=== PATIENT | female | born 1950 | race American Indian/Alaskan Native ===

== ENCOUNTER 2018-08-30 15:13 | Emergency (ER) | payer MEDICARE ==
[2018-08-30 15:44] VITALS: BMI 33.0
[2018-08-30] MEDS ORDERED: Sodium Chloride 0.9% 1,000 ML IV ONE (16:43)
[2018-08-30 16:54] LABS: BASO % 0.6 % (0.0-2.0); EOS # 0.5 K/uL (0.0-0.7); EOS % 9.3 % (0.0-4.0); HEMOGLOBIN 11.8 g/dL (11.0-16.0); LYMPH # 2.1 K/uL (1.0-4.3); MEAN CELL VOLUME 77.1 fL (81.0-99.0); MEAN CORPUSCULAR HEMOGLOBIN 25.3 pg (27.0-31.0); MEAN CORPUSCULAR HGB CONC 32.8 g/dL (33.0-37.0); MEAN PLATELET VOLUME 7.7 fL (7.2-11.7); MONO # 0.5 K/uL (0.0-0.8); MONO % 9.7 % (0.0-10.0); NEUT # 2.3 K/uL (1.8-7.0); NEUT % 41.4 % (50.0-75.0); NRBC % 0.2 % (0.0-2.0); RBC 4.67 Mil/uL (3.80-5.20); RED CELL DISTRIBUTION WIDTH 15.7 % (11.5-14.5); WHITE BLOOD COUNT 5.5 K/uL (4.8-10.8)
[2018-08-30 16:56] LABS: SQUAMOUS EPITHIAL 1 /hpf (0-5); URINE BACTERIA FEW (<OCC); URINE BILIRUBIN NEGATIVE (NEGATIVE); URINE BLOOD 2+ (NEGATIVE); URINE CLARITY Hazy (Clear); URINE COLOR Yellow (YELLOW); URINE GLUCOSE (UA) NORMAL (Normal); URINE LEUKOCYTE ESTERASE 3+ Leu/uL (Negative); URINE PROTEIN NEGATIVE (NEGATIVE); URINE UROBILINOGEN NORMAL mg/dL (0.2-1.0); WBC CLUMPS FEW /hpf
--- NOTE | 2018-08-30 16:57 | C.PDOC ---
History Of Present Illness 67 y/o female with a PMHx of HTN presents to the ED complaining of 3 weeks of intermittent low back pain radiating down the left leg. Since yesterday, patient has noticed some blood in the urine and when wiping. Otherwise she denies any nausea, vomiting, abdominal pain, fevers, chills, numbness, or weakness. Time Seen by Provider: 08/30/18 15:50 Chief Complaint (Nursing): Female Genitourinary History Per: Patient History/Exam Limitations: no limitations Onset/Duration Of Symptoms: Days Current Symptoms Are (Timing): Still Present Associated Symptoms: None Past Medical History Reviewed: Historical Data, Nursing Documentation, Vital Signs Vital Signs: Last Vital Signs Temp 97.7 F 08/30/18 15:47 Pulse 54 L 08/30/18 15:47 Resp 17 08/30/18 15:47 BP 155/95 H 08/30/18 15:47 Pulse Ox 99 08/30/18 15:47 - Medical History PMH: Fractures (LEFT RING FINGER), HTN, Hypercholesterolemia Denies: Chronic Kidney Disease - [facility] Procedures INCIS W REM OF FORIEGN BODY OR DEV FROM SKIN & SUBCUT TISSUE (10/17/14) OTHER LOCAL DESTRUC SKIN (10/17/14) Family History: States: No Known Family Hx - Social History Hx Alcohol Use: No Hx Substance Use: No - Immunization History Hx Tetanus Toxoid Vaccination: No Hx Influenza Vaccination: Yes Hx Pneumococcal Vaccination: Yes Review Of Systems Except As Marked, All Systems Reviewed And Found Negative. Constitutional: Negative for: Fever, Chills Cardiovascular: Negative for: Chest Pain Respiratory: Negative for: Shortness of Breath Gastrointestinal: Negative for: Nausea, Vomiting, Abdominal Pain, Diarrhea Genitourinary: Positive for: Hematuria. Negative for: Dysuria, Frequency, Incontinence Musculoskeletal: Positive for: Back Pain, Leg Pain Skin: Negative for: Rash Neurological: Negative for: Weakness, Numbness, Incoordination Physical Exam - Physical Exam Appears: Well, Non-toxic, No Acute Distress Skin: Normal Color, Warm, No Rash Head: Normacephalic Eye(s): bilateral: PERRL Oral Mucosa: Moist Neck: Trachea Midline, Supple Chest: Symmetrical Cardiovascular: Rhythm Regular, No Murmur Respiratory: Normal Breath Sounds, No Accessory Muscle Use, No Rhonchi, No Wheezing Gastrointestinal/Abdominal: Soft, Tenderness (Mild suprapubic tenderness), No Guarding, No Rebound Back: No CVA Tenderness, No Vertebral Tenderness, Paraspinal Tenderness (diffuse lumbar tenderness) Extremity: Normal ROM (x 4), No Pedal Edema, No Deformity Pulses: Left Dorsalis Pedis: Normal, Right Dorsalis Pedis: Normal Neurological/Psych: Oriented x3, Normal Cranial Nerves, Normal Motor, Normal Sensation Gait: Steady ED Course And Treatment - Laboratory Results Result Diagrams: 08/30/18 16:50 08/30/18 16:50 Lab Interpretation: No Acute Changes O2 Sat by Pulse Oximetry: 99 (RA) Pulse Ox Interpretation: Normal - CT Scan/US CT abd/pelvis Other Rad Studies (CT/US): Read By Radiologist, Radiology Report Reviewed CT/US Interpretation: Accession No. : [id number]. Patient Name / ID : Marco Tompkins / [id number]. Exam Date : 08/30/2018 17:57:11 ( Approved ). Study Comment : Sex / Age : F / 67Y. Creator : Jimmy Nunes Dictator : Kelsie Luna MD. Security Flex Utility Officer : Head Athletic Trainer : Kelsie Luna MD. Approver2 : Report Date : 08/30/2018 18:12:48. My Comment : . PROCEDURE: CT Abdomen and Pelvis without Oral or IV contrast. HISTORY: renal pain. COMPARISON: Abdominal ultrasound performed 04/08/18. TECHNIQUE: Contiguous axial images of the abdomen and pelvis. No oral or IV contrast administered. Coronal and Sagittal reformats generated and reviewed. Radiation dose: Total exam DLP = 949.98 mGy-cm. This CT exam was performed using one or more of the following dose reduction techniques: Automated exposure control, adjustment of the mA and/or kV according to patient size, and/or use of iterative reconstruction technique. FINDINGS: There is limited evaluation of the solid organs without the administration of IV contrast. LOWER THORAX: No visible consolidation, pleural effusion, or pneumothorax. LIVER: Unremarkable unenhanced appearance. GALLBLADDER AND BILE DUCTS: Unremarkable unenhanced appearance. PANCREAS: Unremarkable unenhanced appearance. SPLEEN: Unremarkable unenhanced appearance. ADRENALS: Unremarkable unenhanced appearance. KIDNEYS AND URETERS: No hydronephrosis or obstructing renal calculus. Bilateral renal cysts largest at the right lower pole measuring approximately 5.4 cm. BLADDER: Mildly thick-walled under distended urinary bladder. REPRODUCTIVE: Uterus is present. APPENDIX: The appendix appears within normal limits of caliber. No secondary signs of acute appendicitis. BOWEL: The stomach is nondistended. Lack of oral contrast limits evaluation for bowel pathology. The bowel loops appear within normal limits of caliber without evidence of intestinal obstruction. Moderate to severe diffuse constipation. PERITONEUM: No significant free fluid. No definite free air. LYMPH NODES: No bulky lymphadenopathy identified. VASCULATURE: Atherosclerotic calcifications. No aortic aneurysm. BONES: 10 mm anterolisthesis of L4 on L5. Degenerative changes of the spine. OTHER FINDINGS: None. IMPRESSION: Bilateral renal cysts, largest at the right lower pole measuring approximately 5.4 cm. Mildly thick-walled under distended urinary bladder; recommend correlation with urinalysis. Moderate to severe diffuse constipation. 10 mm anterolisthesis of L4 on L5. Progress Note: Labs ordered and reviewed. Patient given 1L IV fluids and 30 mg IV Toradol. Pt remained stable during the Ed evaluation. On re-eval, resting comfortably, not in any apparent distress. Abd: benign, (-) guarding, (-) rebound, (-) localized tenderness. Back: (-) CVA tenderness. Blood work review and appears without acute findings, no acute leukocytosis or left shift, CMP- normal. UA c/w UTI. Pt received Cefepime, Ucx- pending. CT A/P review : Bilateral renal cysts, largest at the right lower pole measuring approximately 5.4 cm. Mildly thick-walled under distended urinary bladder; recommend correlation with urinalysis. results review and discussed with patient. Pt has clinical findings c/w UTI. Pt advised and ref. to F/u with PMD, Uroloigy in 2-3 days for re-evaluation. return to ED if any worsening or new chnages. Disposition Counseled Patient/Family Regarding: Studies Performed, Diagnosis, Need For Followup, Rx Given - Disposition Referrals: Saritha De La Garza MD [Medical Doctor] - Te Keane MD [Staff Provider] - Disposition: HOME/ ROUTINE Disposition Time: 18:38 Condition: STABLE Additional Instructions: Encourage fluids Take medication as prescribed Cranberry supplement daily Follow up with PMD, Urology in 2-3 days for re-evaluation. return to ED if any worsening or new changes. Prescriptions: Cefdinir [Omnicef] 300 mg PO BID #14 cap Cranberry 500 mg PO BID #30 capsule Instructions: Urinary Tract Infections in Adults Forms: [employer] (French) - Clinical Impression Clinical Impression: UTI (urinary tract infection) - PA / BARREL LATHE OPERATOR INSIDE / Resident Statement MD/DO has reviewed & agrees with the documentation as recorded. - Scribe Statement The provider has reviewed the documentation as recorded by the Scribe Amanda Cali All medical record entries made by the Scribe were at my direction and persona lly dictated by me. I have reviewed the chart and agree that the record accurately reflects my personal performance of the history, physical exam, medical decision making, and the department course for this patient. I have also personally directed, reviewed, and agree with the discharge instructions and disposition.
[2018-08-30 17:05] LABS: ALB/GLOB RATIO 1.2 (1.0-2.1); ALBUMIN 4.5 g/dL (3.5-5.0); CALCIUM 10.2 mg/dl (8.6-10.4)
[2018-08-30] MEDS ORDERED: Cefepime IV 2 gm in Dextrose 2 GM/100 ML BAG IVPB STA (17:26)
[2018-08-30 17:53] VITALS: BP 159/86; PULSE 52; RESP 18; TEMP 97.5
[2018-08-30 18:15] VITALS: O2SAT 99
--- NOTE | 2018-08-30 18:33 | CT ---
PROCEDURE: CT Abdomen and Pelvis without Oral or IV contrast. HISTORY: renal pain COMPARISON: Abdominal ultrasound performed 04/08/18 TECHNIQUE: Contiguous axial images of the abdomen and pelvis. No oral or IV contrast administered. Coronal and Sagittal reformats generated and reviewed. Radiation dose: Total exam DLP = 949.98 mGy-cm. This CT exam was performed using one or more of the following dose reduction techniques: Automated exposure control, adjustment of the mA and/or kV according to patient size, and/or use of iterative reconstruction technique. FINDINGS: There is limited evaluation of the solid organs without the administration of IV contrast. LOWER THORAX: No visible consolidation, pleural effusion, or pneumothorax. LIVER: Unremarkable unenhanced appearance. GALLBLADDER AND BILE DUCTS: Unremarkable unenhanced appearance. PANCREAS: Unremarkable unenhanced appearance. SPLEEN: Unremarkable unenhanced appearance. ADRENALS: Unremarkable unenhanced appearance. KIDNEYS AND URETERS: No hydronephrosis or obstructing renal calculus. Bilateral renal cysts largest at the right lower pole measuring approximately 5.4 cm. BLADDER: Mildly thick-walled under distended urinary bladder. REPRODUCTIVE: Uterus is present. APPENDIX: The appendix appears within normal limits of caliber. No secondary signs of acute appendicitis. BOWEL: The stomach is nondistended. Lack of oral contrast limits evaluation for bowel pathology. The bowel loops appear within normal limits of caliber without evidence of intestinal obstruction. Moderate to severe diffuse constipation. PERITONEUM: No significant free fluid. No definite free air. LYMPH NODES: No bulky lymphadenopathy identified. VASCULATURE: Atherosclerotic calcifications. No aortic aneurysm. BONES: 10 mm anterolisthesis of L4 on L5. Degenerative changes of the spine. OTHER FINDINGS: None. IMPRESSION: Bilateral renal cysts, largest at the right lower pole measuring approximately 5.4 cm. Mildly thick-walled under distended urinary bladder; recommend correlation with urinalysis. Moderate to severe diffuse constipation. 10 mm anterolisthesis of L4 on L5.
== END 2018-08-30 19:18 | disposition home or self-care (01) ==
LOC: C.ER 15:13
DX: N39.0 Urinary tract infection, site not specified (principal)
CPT/HCPCS: 74176; 80053; 81001; 83690; 85025; 87086; 96361; 96365; 96375; 99285; J0692; J1885; J7030

== ENCOUNTER 2018-09-01 10:05 | Outpatient (CLI) | payer MEDICARE | END 2018-09-01 10:06 | disposition home or self-care (01) | LOC: C.VASC 10:05 | DX: M79.605 Pain in left leg (principal); M16.10 Unilateral primary osteoarthritis, unspecified hip ==